=== PATIENT | male | born 1955 | race Caucasian/White ===

== ENCOUNTER 2017-02-17 05:56 | Inpatient (IN) | payer BC ==
[2017-02-17] MEDS ORDERED: TRANEXAMIC ACID 1,000 MG in NORMAL SALINE 100 ML IV PRN (06:00)
[2017-02-17] MEDS ORDERED: ROPIVACAINE HCL/PF 100 MG, KETOROLAC TROMETHAMINE 30 MG, EPINEPHrine 0.2 MG in NORMAL S... IJ PRN (06:00)
[2017-02-17] MEDS ORDERED: MORPHINE SULFATE 15 MG TABLET.SA PO PRN (06:00)
[2017-02-17] MEDS ORDERED: ceFAZolin SODIUM 1 GM VIAL IV PRN (06:00)
[2017-02-17] MEDS: RINGERS SOLUTION,LACTATED 1,000 ML IV PRN ×2 (06:41→08:05)
[2017-02-17] MEDS ORDERED: RINGERS SOLUTION,LACTATED 1,000 ML IV ONE (10:15)
[2017-02-17] MEDS ORDERED: ACETAMINOPHEN 500 MG TABLET PO PRN (10:16)
[2017-02-17] MEDS ORDERED: MORPHINE SULFATE 4 MG/ML SYRG IV PRN (10:16)
[2017-02-17] MEDS ORDERED: ONDANSETRON HCL/PF 2 MG/ML VIAL IV PRN (10:16)
[2017-02-17] MEDS ORDERED: PROMETHAZINE HCL 5 MG in DEXTROSE 5 % IN WATER 50 ML IV PRN ×2 (10:16)
[2017-02-17] MEDS ORDERED: MAG HYDROX/ALUMINUM HYD/SIMETH 30 ML UDC PO PRN (10:16)
[2017-02-17] MEDS ORDERED: diphenhydrAMINE HCL 50 MG/ML VIAL IV PRN (10:16)
[2017-02-17] MEDS ORDERED: MAGNESIUM HYDROXIDE 30 ML UDC PO PRN (10:16)
[2017-02-17] MEDS ORDERED: ZOLPIDEM TARTRATE 5 MG TABLET PO PRN (10:16)
--- NOTE | 2017-02-17 10:20 | OR ---
Operative Report - Dictated Report Narrative: Date: 02/17/2017 Preoperative diagnosis: Left Knee degenerative joint disease. Postoperative diagnosis: Left Knee degenerative joint disease. Procedure: Left Total knee arthroplasty. Surgeon: Harjit Chung M.D. Environmental Health And Safety Leader: Govind Guerrier PA-C Anesthesia: Spinal with regional block and local periarticular joint injection. Complications: None Specimens: Bone for disposal. Estimated blood loss: Minimal. Tourniquet time: 80 Minutes at 325 millimeters of mercury. Retained implants: Depuy Attune size 6 left lugged cemented posterior stabilized femoral component. Size 6 fixed-bearing cemented tibial platform. 6 by 6 millimeter posterior stabilized cross-linked tibial insert. 38 millimeter medialized patella button. Indications: Mr. Velarde is a 61-year-old gentleman who previously underwent a right total knee arthroplasty and had persistent increasing left knee pain and arthrosis. This patient was followed in my clinic for period of time with significant complaints of left knee pain consistent with arthritic changes. They had failed conservative measures including, but not limited to, activity modification, passage of time, medications, and other conservative measures. Patient wished to proceed with surgical treatment. The risks, benefits, and alternatives were discussed in clinic. The risks of , blood clots, bleeding, infection, nerve/tendon blood vessel/ injury, malposition of components, intraoperative fracture, postoperative limited range of motion, persistent pain, failure of components, and need for additional procedures. Patient wished to proceed consent was obtained after answering all questions. Procedure: After marking the correct extremity on the floor, the patient was taken to the operating room. A timeout was performed. IV antibiotics consisting of Ancef were administered prior to the procedure. A regional followed by spinal anesthetic was induced by anesthesia on the operative table with all bony prominences well-padded. Ruiz catheter was placed, and a bump was placed under the operative side buttock. SCDs and DAKSHA hose were utilized on the nonoperative leg. A well-padded tourniquet was applied to the operative thigh. The operative leg was then pre-scrubbed with alcohol prepped, and draped in a standard sterile fashion. After exsanguinating the extremity with an Esmarch bandage, the tourniquet was inflated. After marking out the anterior knee for standard incision centered over the patella, the skin was incised and dissected down to the joint retinaculum. The joint retinaculum was marked out as well as the horizontal axis of the patella, and a standard medial parapatellar arthrotomy was then made. The most proximal aspect of the quadriceps tendon and the patella tendon insertion were protected from release. A partial synovectomy was performed as well as a resection of the infrapatellar fat pad. The distal femoral fat pad proximal to the trochlea was also resected using cautery. The soft tissues were elevated off the medial aspect of the proximal tibia using a Bartholomew elevator ensuring that we did not transect the medial collateral ligament. Upon initial evaluation range of motion was approximately 5 degrees to 120 degrees of flexion. There were signs of advanced arthrosis in the medial, lateral, and patellofemoral joint spaces. There were large marginal osteophytes which were removed with a rongeur. The knee was hyperflexed and the patella was tucked laterally. Protecting the surrounding soft tissues with Homans, an entry drill was placed down the femoral canal using Whitesides line for guidance into the entry point. The intramedullary femoral alignment jayson was utilized in order to cut the distal femur in 5 degrees of valgus resecting 10 millimeters of bone. Next the distal femur was sized to a size 6. A posterior referencing guide was utilized to place the distal femoral cutting block in 3 degrees of external rotation. This was pinned into place. The rotation was confirmed both visually and based on anatomic landmarks. The 4 in 1 cutting jig of the appropriate size was utilized in order to make all bony cuts. The angle wing was used to ensure no notching. Retractors were utilized in order to protect surrounding soft tissues. This cut did not result in any excessive notching. We then cut the box centered over the distal femur. This allowed for resection of the anterior and posterior cruciate ligaments. I then turned my attention to the preparation of the tibia. Using an extra medullary tibial alignment jayson, 3 millimeters of bone was resected off the medial articular surface. This was made perpendicular to the mechanical axis of the joint with the alignment jayson centered over the ankle mortise. The alignment jayson was checked and was noted to be parallel to the mechanical axis, centered over the medial one third of the tibial tubercle, paralleling the anterior surface of the tibia. We then turned our attention to the remaining meniscus and soft tissues. These were removed while protecting the surrounding ligaments and soft tissues. The marginal osteophytes off the anterior, posterior, medial, lateral aspects of the femur and tibia were removed. The tibia was sized out to a size 6. Next the tibia was drilled and punched in an externally rotated position. Next the trial femur and a series of tibial inserts were utilized in order to allow for full extension and maximal flexion. It was found that a 6 millimeter insert gave the best range of motion and stability at multiple flexion points as well as at full extension there was less than 2 mm of gapping both medially and laterally. There is minimal anterior translation with the knee at 90 degrees of flexion and no signs of being able to dislocate the knee. The patella was then prepared. The initial thickness was 26 millimeters. This was reamed down to 15 millimeters parallel to the anterior surface of the patella. It was sized out to a size 38 medialized patella button. This was then drilled and trialed. Without any medial restraint the patella tracked appropriately and did not sublux or dislocate. At this point, it was felt these were the appropriate sized implants, and all trials were removed. The standard periarticular joint injection consisting of ropivacaine, Toradol, and epinephrine were injected into the periarticular joint tissues. The bony surfaces were thoroughly irrigated with a pulsatile- suction saline irrigation device. A bone plug from the prior resected anterior chamfer cut was placed into the drill hole at the distal femur. The bony surfaces were then dried in preparation for placement of the implants. The cement was vacuum mixed per the software development engineer's instructions. The cement was placed on the dry bony surfaces and posterior aspect of the implants. The implants were impacted into place, removing all extruded cement. At this point anesthesia administered tranexamic acid per protocol intravenously. The knee was placed in extension with axial loading with the trial insert while the cement cured. Once the cement cured, all remaining extruded cement was removed. The knee was placed through a range of motion with the trial insert to ensure appropriate range of motion and stability. Final range of motion was approximately 0 to 120 degrees. The knee was again thoroughly irrigated with pulsatile saline lavage. The final polyethylene insert was then impacted into place ensuring no retained soft tissues. The remaining periarticular joint injection was injected. A medium Hemovac drain was placed exiting superior laterally. The knee was then placed over a triangle and the arthrotomy was closed with interrupted #1 Vicryl after thoroughly irrigating the joint. The deep and subcutaneous tissues were closed with interrupted oh and 3-0 Vicryl respectively. Skin was closed with a running subcutaneous 3-0 Monocryl and Prineo Dermabond dressing. 4 x 4's, Sof-Rol, and a full leg Miah wrap were applied. All sponge, needle, blade, and instrument counts were correct prior to closing the wounds. Postoperative condition: The patient was awoken and transferred to the postanesthesia care unit in stable condition. Plan is to be admitted to the inpatient medical/surgical floor postoperatively for 24 hours of IV antibiotics , physical therapy, occupational therapy, and medical comanagement. Patient will be weightbearing as tolerated with range of motion as tolerated. DVT prophylaxis will be with SCDs, DAKSHA hose, and pharmacological anticoagulation. Anticipated hospital stay is approximately 2-4 days.
[2017-02-17] MEDS: DEXTROSE 5%-LACTATED RINGERS 1,000 ML IV PRN ×2 (11:31→20:37)
[2017-02-17] MEDS: KETOROLAC TROMETHAMINE 15 MG/ML VIAL IV SCH ×3 (11:33→22:41)
[2017-02-17] MEDS: ceFAZolin SODIUM 1 GM in DEXTROSE 5 % IN WATER 100 ML IV SCH ×6 (12:58→23:29)
[2017-02-17] MEDS: MORPHINE SULFATE 10 MG/0.5 ML SYRINGE PO PRN ×3 (14:09→23:28)
[2017-02-17] MEDS: SENNOSIDES/DOCUSATE SODIUM 1 TAB TABLET PO SCH (20:38)
[2017-02-17] MEDS: MORPHINE SULFATE 15 MG TABLET.SA PO SCH (20:38)
[2017-02-18] MEDS: KETOROLAC TROMETHAMINE 15 MG/ML VIAL IV SCH ×4 (04:39→22:21)
[2017-02-18 06:07] LABS: Hematocrit 37.8 % (42.0-52.0); Hemoglobin 12.9 gm/dL (13.5-18.0); Mean Corpuscular Hemoglobin 32.4 pg (27-31); Mean Corpuscular Hgb Conc 34.1 g/dl (32-36); Mean Platelet Volume 9.3 fl (6.0-9.5); Platelet Count 241 K/mm3 (150-450); Red Blood Count 3.98 M/mm3 (4.7-6.0); Red Cell Distribution Width 11.8 % (11.5-14.0); White Blood Count 9.6 K/mm3 (4.0-10.5)
[2017-02-18 06:16] LABS: Anion Gap 6.2 mmol/L (6.8-13.8); BUN/Creatinine Ratio 12.7 (9.0-21.6); Calcium * 8.1 mg/dL (7.9-10.9); Estimated Creat Clear 73.6; Potassium 4.2 mmol/L (3.4-4.6)
[2017-02-18] MEDS: MORPHINE SULFATE 10 MG/0.5 ML SYRINGE PO PRN ×4 (07:25→20:02)
--- NOTE | 2017-02-18 08:11 | PN ---
Subjective - Date and Time Seen Date: 02/18/17 Time: 08:07 Subjective Narrative: Subjective: Reports difficulty sleeping. Was able to walking the morales with therapy. Pain is well-controlled. Voiding without any complications. Tolerating by mouth intake. Denies any nausea or vomiting. Denies calf pain. Physical exam: Alert and oriented to person, place and time Left lower Extremity: Palpable dorsalis pedis pulse. Sensation grossly intact to light touch. Dressings clean and dry. Able to flex and extend ankle and toes. No excessive drainage. Calf and thigh are soft and nontender. Assessment: Postop day 1 status post left total knee arthroplasty. Plan: Continue with physical and occupational therapy weightbearing as tolerated. Continue with anticoagulation. 24 hours postoperative prophylactic antibiotics. Pain control with goal to rely on oral medications. Continue bowel regimen. Will need 6 weeks with walker or assitive device to protect joint while ambulating during the recovery process. Discharge planning. Discontinue drain and Ruiz catheter. Repeat labs in a.m. Objective - Vitals Vitals: Last Vital Signs Temp 36.5 C 02/18/17 06:25 Pulse 87 02/18/17 06:25 Resp 16 02/18/17 06:25 BP 121/67 02/18/17 06:25 Pulse Ox 97 02/18/17 06:25 - Abnormal Lab Findings Abnormal Lab Findings: Abnormal Lab Results 02/18/17 02/18/17 Range/Units 05:20 05:20 RBC 3.98 L (4.7-6.0) M/mm3 Hgb 12.9 L (13.5-18.0) gm/dL Hct 37.8 L (42.0-52.0) % MCH 32.4 H (27-31) pg Carbon Dioxide 33.0 H (24-32.6) mmol/L Anion Gap 6.2 L (6.8-13.8) mmol/L Random Glucose 130 H (70-110) mg/dL Cauti Physician Documentation - Urinary Catheter Management Urethral (Ruiz) Date of Insertion: 02/17/17 Time of Insertion: 08:40 Date of Removal: 02/18/17 Time of Removal: 07:21 Assessment/Plan - Problems/Diagnosis (1) Status post total left knee replacement Problem: Acute (2) Acute blood loss anemia Problem: Acute (3) Asthma Problem: Chronic
[2017-02-18] MEDS ORDERED: THYROID,PORK 60 MG TABLET PO SCH (09:00)
[2017-02-18] MEDS: ENOXAPARIN SODIUM 40 MG/0.4 ML SYRG SC SCH (09:21)
[2017-02-18] MEDS: MORPHINE SULFATE 15 MG TABLET.SA PO SCH ×2 (09:21→20:01)
[2017-02-18] MEDS: ARMOUR THYROID 120 MG PO SCH (09:22)
[2017-02-18] MEDS: SENNOSIDES/DOCUSATE SODIUM 1 TAB TABLET PO SCH (20:01)
--- NOTE | 2017-02-18 23:51 | PN ---
Subjective - Date and Time Seen Date: 02/18/17 Time: 12:55 Objective - Vitals Vitals: Last Vital Signs Temp 36.8 C 02/18/17 22:00 Pulse 92 02/18/17 22:00 Resp 16 02/18/17 22:00 BP 125/58 02/18/17 22:00 Pulse Ox 98 02/18/17 22:00 - Abnormal Lab Findings Abnormal Lab Findings: Abnormal Lab Results 02/18/17 02/18/17 Range/Units 05:20 05:20 RBC 3.98 L (4.7-6.0) M/mm3 Hgb 12.9 L (13.5-18.0) gm/dL Hct 37.8 L (42.0-52.0) % MCH 32.4 H (27-31) pg Carbon Dioxide 33.0 H (24-32.6) mmol/L Anion Gap 6.2 L (6.8-13.8) mmol/L Random Glucose 130 H (70-110) mg/dL Cauti Physician Documentation - Urinary Catheter Management Urethral (Ruiz) Date of Insertion: 02/17/17 Time of Insertion: 08:40 Date of Removal: 02/18/17 Time of Removal: 07:21
[2017-02-19] MEDS: KETOROLAC TROMETHAMINE 15 MG/ML VIAL IV SCH (04:23)
[2017-02-19] MEDS: ENOXAPARIN SODIUM 40 MG/0.4 ML SYRG SC SCH (08:30)
[2017-02-19] MEDS: ARMOUR THYROID 120 MG PO SCH (08:30)
[2017-02-19] MEDS: MORPHINE SULFATE 15 MG TABLET.SA PO SCH (08:30)
[2017-02-19 08:40] LABS: Hematocrit 34.9 % (42.0-52.0); Mean Cell Volume 94.8 fl (78-100); Mean Corpuscular Hemoglobin 32.6 pg (27-31); Mean Corpuscular Hgb Conc 34.4 g/dl (32-36); Mean Platelet Volume 9.2 fl (6.0-9.5); Platelet Count 229 K/mm3 (150-450); Red Blood Count 3.68 M/mm3 (4.7-6.0); Red Cell Distribution Width 11.7 % (11.5-14.0); White Blood Count 14.6 K/mm3 (4.0-10.5)
[2017-02-19 08:56] LABS: Anion Gap 8.7 mmol/L (6.8-13.8); BUN/Creatinine Ratio 20.8 (9.0-21.6); Calcium * 8.1 mg/dL (7.9-10.9); Carbon Dioxide 27.9 mmol/L (24-32.6); Estimated Creat Clear 74.3; Potassium 4.6 mmol/L (3.4-4.6)
--- NOTE | 2017-02-19 09:35 | DS ---
(1) Status post total left knee replacement Problem: Acute (2) Acute blood loss anemia Problem: Acute (3) Asthma Problem: Chronic Description of Stay: Mr. Velarde was admitted to the floor after undergoing left total knee arthroplasty. Tolerated this well. Was admitted to the floor postoperatively for 24 hours of IV antibiotics, pain control, medical comanagement, and occupational and physical therapy. OT and PT were consulted to assist with activities of daily living and ambulation. Was made weightbearing as tolerated with range of motion as tolerated. Pain was initially controlled with IV regimen. This was transitioned to oral once tolerating a by mouth intake. Was resumed on home diet and medications. Had a Ruiz catheter inserted and the operating room which was discontinued on postoperative day 1. A drain was placed intraoperatively into the knee which was discontinued on postoperative day 1. Lovenox SCD and DAKSHA hose were utilized for DVT prophylaxis. Vital signs remained stable to the hospital course. Serial labs were obtained which showed a final hemoglobin of 12.0 grams. BMP was reviewed and was stable. Physical examination throughout the hospital course showed an extremity that had sensation that was intact to light touch, palpable pulses, a benign wound, motor intact to the toes, ankle, and knee. Knee range of motion was approximately 0 degrees to 70 degrees. Once an oral pain regimen was tolerated and physical therapy goals were met, it was felt that they were stable for discharge to home. Instructions: Continue with weightbearing as tolerated and range of motion as tolerated. He was instructed that it is okay to shower as long since no drainage on the wound. If there is any drainage from the wound he is instructed to keep the wound clean and dry. Cover with dry gauze and tape. Change every 2-3 days as needed. Continue with physical therapy. Resume home diet. Report any fever over 101.5 Fahrenheit, uncontrolled pain, increased drainage, foul odor of drainage, new or increased calf pain or shortness of breath, or any other significant complaints. A 325mg dialy aspirin will be started after finishing anticoagulation if not allergic. Continue with DAKSHA hose on the operative extremity until instructed otherwise. No driving until instructed otherwise. Follow up in approximately 10-14 days. Procedures Performed: see notes below List Procedures: Left total knee arthroplasty Discharge Disposition: Home self care Disposition: Home self-care Condition: Good Discharge Activity: Activity as tolerated, Weight bearing Discharge Diet: General/regular food Custodial Therapy: Physicial Therapy Referrals: Olegario Landrum DO [Primary Care Provider] - Additional Patient Instructions (free text): Follow up outpatient Physical Therapy at [facility] on WednesdayFebruary 22 at 10:15 am. Follow up with Orthopedics Dr Chung on March 04 at 1:45 pm. Prescriptions (Any new or edited meds): Enoxaparin Sodium [Lovenox] 40 mg SC Q24H #7 disp.syrin Morphine Sulfate [Ms Contin] 15 mg PO Q12H #20 tablet.sa Sennosides/Docusate Sodium [Senokot-S] 2 tab PO HS #30 tablet Complete Home Medications List: Complete Home Medication List: Thyroid,Pork [[place] Thyroid] 120 mg PO DAILY 03/20/16 Acetaminophen [Tylenol Arthritis] 1,300 mg PO Q8H PRN 02/10/17 Enoxaparin Sodium [Lovenox] 40 mg SC Q24H #7 disp.syrin 02/19/17 Morphine Sulfate [Ms Contin] 15 mg PO Q12H #20 tablet.sa 02/19/17 Sennosides/Docusate Sodium [Senokot-S] 2 tab PO HS #30 tablet 02/19/17 Amb Orders for Discharge: PT Evaluation and Treatment Facility: [facility], Location: Rehabilitation Services
[2017-02-19] MEDS: MORPHINE SULFATE 10 MG/0.5 ML SYRINGE PO PRN (09:46)
[2017-02-19 10:06] VITALS: BP 138/61
== END 2017-02-19 11:30 | disposition home or self-care (01) | DRG 470 ==
LOC: MS 05:56
PROVIDERS: ADMIT Orthopaedic Surgery; ATTEND Orthopaedic Surgery
PROC: 0SRD0J9 Replacement of Left Knee Joint with Synthetic Substitute, Cemented, Open Approach (ICD-10-PCS; principal; 2017-02-17 08:00)
DX: M17.12 Unilateral primary osteoarthritis, left knee (principal); D62 Acute posthemorrhagic anemia; J45.909 Unspecified asthma, uncomplicated; E89.0 Postprocedural hypothyroidism; Z85.850 Personal history of malignant neoplasm of thyroid
CPT/HCPCS: 27447; 36415; 73560; 80048; 85027; 97110; 97116; 97161; 97166; 97535; J2405